=== PATIENT | female | born 1945 | race Caucasian/White ===

== ENCOUNTER 2018-06-08 12:41 | Emergency (ER) | payer BC, OTHER ==
--- NOTE | 2018-06-08 13:11 | ED Physician Chart ---
ED Chief Complaint/HPI - Patient Information Date Seen:: 06/08/18 Time Seen:: 12:50 Chief Complaint:: Back Pain History of Present Illness:: onset x 3 days of intermittent, sharp, MS type LBP; pt denies trauma, LOC, ALOC , AMS, H/As,. S/T, neck pain, C/P, cough, SOB, Abd. Pain, A/N/V/D/C, fever, chills, or urinary s/s Allergies:: Allergies Allergy/AdvReac Type Severity Reaction Status Date / Time iodine Allergy Verified 06/08/18 12:50 Vitals:: Vital Signs - 8 hr 06/08/18 12:50 Temp 98.1 F HR 80 RR 17 BP 149/71 O2 Sat % 98 Historian:: Patient, Family Member Review:: Nurse's Note Reviewed ED Review of Systems - Review of Systems General/Constitutional: No fever, No chills, No weight loss, No weakness, No diaphoresis, No edema, No loss of appetite Skin: Skin lesions, Rash, No bruising Head: No headache, No light-headedness Eyes: No loss of vision, No pain, No diplopia ENT: No earache, No nasal drainage, No sore throat, No tinnitus Neck: No neck pain, No swelling, No thyromegaly, No stiffness, No mass noted Cardio Vascular: No chest pain, No palpitations, No PND, No orthopnea, No edema Pulmonary: No SOB, No cough, No sputum, No wheezing GI: No nausea, No vomiting, No diarrhea, No pain, No melena, No hematochezia, No constipation, No hematemesis G/U: No dysuria, No frequency, No hematuria, No nacturia Cooling Room Attendant: No vaginal discharge, No abnormal vaginal bleed, No contraction Musculoskeletal: Bone or joint pain, Back pain, No muscle pain Endocrine: No polyuria, No polydipsia Psychiatric: No prior psych history, No depression, No anxiety, No suicidal ideation, No homicidal ideation, No auditory hallucination, No visual hallucination Hematopoietic: No bruising, No lymphadenopathy Allergic/Immuno: No urticaria, No angioedema Neurological: No syncope, No focal symptoms, No weakness, No paresthesia, No headache, No seizure, No dizziness, No confusion, No vertigo ED Past Medical History - Past Medical History Obtainable: Yes Past Medical History: HTN Family History: HTN Social History: Non Smoker, No Alcohol, No Drug Use, Surgical History: None Psychiatricy History: None Medication: Reviewed Family Medical History - Family Member Mother History Unknown: Yes ED Physical Exam - Physical Examination General/Constitutional: Awake, Well-developed, well-nourished, Alert, No distress, GCS 15, Non-toxic appearing, Ambulatory Head: Atraumatic Eyes: Lids, conjuctiva normal, PERRL, EOMI Skin: Nl inspection, No rash, No skin lesions, No ecchymosis, Well hydrated, No lymphadenopathy ENMT: External ears, nose nl, TM canals nl, Nasal exam nl, Lips, teeth, gums nl , Oropharynx nl, Tonsils nl Neck: Nontender, Full ROM w/o pain, No JVD, No nuchal rigidity, No bruit, No mass, No stridor Other Neck comments:: supple; no meningeal signs; no cervical tenderness; no bruits Respiratory: Nl effort/Exclusion, Clear to Auscultation, No Wheeze/Rhonchi/Rales Cardio Vascular: RRR, No murmur, gallop, rubs, NL S1 S2, Carotid/Femoral/Distal pulses equal bilaterally GI: No tenderness/rebounding/guarding, No organomegaly, No hernia, Normal BS's, Nondistended, No mass/bruits, No McBurney tenderness, Rectum exam nl Other GI comments:: no pulsatile masses; good BS : No CVA tenderness Extremities: No tenderness or effusion, Full ROM, normal strength in all extremities, No edema, Normal digits & nails Neuro/Psych: Alert/oriented, DTR's symmetric, Normal sensory exam, Normal motor strength, Judgement/insight normal, Mood normal, Normal gait, No focal deficits Other Neuro/Psych comments:: no focal signs Misc: Normal back, No paraspinal tenderness Other Misc comments:: L-S Tenderness with no loss of ROMs; DTRs: 2+ bilaterally; Gait: WNL; good motor , tendon, and sensory functions; good NV functions ED Labs/Radiology/EKG Results - Lab Results Comments:: Reviewed - Radiology Results Comments:: deferred by pt - EKG Interpretations EKG Time:: 13:12 Rate & Rhythm: 66; NSR Comments:: non-specific st-t changes ED Septic Shock - . Is Septic Shock (SBP<90, OR Lactate>4 mmol\L) present?: No - <6hrs of presentation: Vital Signs: Vital Signs - 8 hr 06/08/18 12:50 Temp 98.1 F HR 80 RR 17 BP 149/71 O2 Sat % 98 ED Reassessment (Disposition) - Reassessment Reassessment:: pt refused admission and further tests and imaging studies; pt chose to sign out AMA; pt is asymptomatic upon discharge Reassessment Condition:: Improved - Diagnosis Diagnosis:: Back Pain; Low Back Pain; Hypokalemia; L-S Strain; Sprains and Strains - Aftercare/Follow up Instructions Aftercare/Follow-Up Instructions:: Counseled pt regarding lab results/diagnosis & need follow up, Refer to Discharge Instructions, Counseled pt & family regarding lab results/diagnosis & need follow up - Patient Disposition Discharge/Transfer:: Against Medical Advice Condition at Disposition:: Stable, Improved (X-Rays Instructions; RTER prn if existing s/s reoccur and/or get worse and/or any other new s/s occur; ACIs given for all above DX; Refer to Spinal Specialist/Orthopedist/Child Support Specialist SHIVANI;m F/U with PMD Today or prn; RTER prn if concerned)
[2018-06-08 13:13] LABS: RED CELL DISTRIBUTION WIDTH 13.6 % (11.5-20.0)
[2018-06-08 13:19] LABS: % BASOPHILS 0.4 % (0.0-2.0); % EOSINOPHILS 4.3 % (0.0-5.0); % LYMPHOCYTES 40.8 % (20.0-50.0); % MONOCYTES 8.9 % (2.0-10.0); % NEUTROPHILS 45.6 % (40.0-80.0); EOSINOPHILE ABSOLUTE 0.2 Th/cmm (0.1-0.4); HEMATOCRIT 39.8 % (41.0-60); HEMOGLOBIN 13.5 gm/dL (12-16); MEAN CORPUSCULAR HEMOGLOBIN 31.8 pg (27.0-31.0); MEAN CORPUSCULAR HGB CONC 33.8 pg (28.0-36.0); MEAN PLATELET VOLUME 7.2 fl; MONOCYTE ABSOLUTE 0.4 Th/cmm (0.3-1.0); NEUTROPHILE ABSOLUTE 2.4 Th/cmm (1.8-8.0); PLATELET COUNT 234 Th/cmm (150-400); RED BLOOD COUNT 4.24 Mil/cmm (3.80-5.20)
[2018-06-08 13:25] LABS: INR 0.98 (0.5-1.4); PROTHROMBIN TIME (TEST) 10.2 SECONDS (9.5-11.5)
[2018-06-08 13:30] LABS: ALBUMIN 4.5 gm/dL (3.7-5.3); ALKALINE PHOSPHATASE 39 U/L (34-104); ANION GAP 12.1 (7.0-16.0); BILIRUBIN,TOTAL 0.3 mg/dL (0.3-1.0); BUN - UREA NITROGEN 14 mg/dL (7-25); CALCIUM SERUM 9.2 mg/dL (8.6-10.3); CARBON DIOXIDE 25.2 mEq/L (21.0-31.0); CHLORIDE 109 mEq/L (98-107); CHOLESTEROL 172 mg/dL (<200); CREATININE - SERUM 0.7 mg/dL (0.6-1.2); CREATININE KINASE 47 U/L (30-223); GLUCOSE 86 mg/dL (70-105); HDL -HIGH DENSITY LIPOPROTEIN 85 mg/dL (23-92); POTASSIUM SERUM 3.3 mEq/L (3.5-5.1); SGOT 17 U/L (13-39); SGPT/ALT 15 U/L (7-52); SODIUM SERUM 143 mEq/L (136-145); TOTAL PROTEIN,SERUM 6.8 gm/dL (6.0-8.3); TRIGLYCERIDES 75 mg/dL (<150)
--- NOTE | 2018-06-08 14:00 | Diagnostic Imaging Report ---
CHEST X-RAY: AP view INDICATION: pain COMPARISON: None FINDINGS: Mild chronic lung changes are noted. There is no focal consolidation or pleural effusions The heart is normal in size. Degenerative changes of the spine are noted with scoliosis. IMPRESSION: Mild chronic lung changes and possible COPD. No focal consolidation identified.
--- NOTE | 2018-06-08 14:05 | Diagnostic Imaging Report ---
CT abdomen and pelvis without intravenous contrast Indication: Abdominal pain Comparison: None, Technique: Axial images were obtained from the lung bases to the bilateral proximal femurs without IV contrast. Coronal reconstructions were made. total DLP: 396, CTDI9.3 FINDINGS: Hypoventilatory changes of the lung bases are noted. Assessment of solid organs is limited due to lack of IV contrast. There is a slightly lobulated 1.8 x 1 cm cyst along the right lower liver. Additional subcentimeter low-density lesions are seen to small to characterize. Punctate calcification of the splenic hilum is noted. Limited assessment of the pancreas demonstrates pancreatic atrophy. No discrete focal lesions. No focal adrenal lesions. No renal stones identified. There is mild bilateral hydronephrosis.. There is significant distention of the urinary bladder. Calcifications along the pelvic region appear to represent phleboliths. Mild diverticulosis is noted without diverticulitis. Moderate stool is noted. Appendix is not clearly limited visualized. There is trace free fluid in the pelvis. No free air. Advanced degenerative changes of the spine are noted with scoliosis. Osteopenia noted. IMPRESSION: Markedly distended urinary bladder. Mild bilateral hydronephrosis changes secondary due to patient's distended urinary bladder. Calcifications of the pelvis appear to represent phleboliths. Trace free fluid fluid in the pelvis Moderate amount of stool throughout the colon. Diffuse atherosclerotic vascular disease 1.8 x 1 cm cyst along the dome of the liver.
[2018-06-08] MEDS ORDERED: Potassium Chloride 20 mEq ER Tab PO ONE (15:11)
== END 2018-06-08 14:19 | disposition left against medical advice (07) ==
LOC: ER 12:41
DX: S33.9XXA Sprain of unspecified parts of lumbar spine and pelvis, initial encounter (principal); S39.012A Strain of muscle, fascia and tendon of lower back, initial encounter; E87.6 Hypokalemia; I10 Essential (primary) hypertension; Z91.041 Radiographic dye allergy status; X58.XXXA Exposure to other specified factors, initial encounter; Y93.89 Activity, other specified; Y92.89 Other specified places as the place of occurrence of the external cause; Y99.8 Other external cause status
CPT/HCPCS: 99284; 96374; 96375; 93005; 71045; 74176; 84484; 83880; 36415; 85025; 85610; 82550; 80053; 80061; J1885; J2405; Z7502